=== PATIENT | female | born 1950 | race Caucasian/White ===

== ENCOUNTER 2024-03-26 05:54 | Day surgery (SDC) | payer OTHER, SELFPAY ==
[2024-03-26] VITALS (10 sets, daily range): BP systolic 116–152; BP diastolic 67–81; BMI 35.8
[2024-03-26] MEDS: LOW STRENGTH ASPIRIN 81 MG PO (07:15)
[2024-03-26] MEDS: NSS 249 ML IV (07:24)
--- NOTE | 2024-03-26 08:08 | ITS.CL.CATH ---
[facility] - Catheterization
Cardiac Catheterization
Procedure Report:
CARDIAC CATHETERIZATION REPORT
Date of Procedure: 03/26/2024
Referring: Sanjay Hewitt M.D., Ph.D.
INDICATION: Chest pain, suspicious for angina.
PROCEDURE:
1. Left heart catheterization.
2. Coronary angiography.
ACCESS:
6 [place] right radial artery.
CATHETERS:
1. 5 [place] JR4.
2. 5 [place] JL 3.5.
HEMODYNAMIC DATA
Weight (kg): 83.0
AO (s/d/x, mmHg): 126/72/94
LV (s/x mmHg): 126/15
LEFT VENTRICULOGRAPHY: Not performed.
CORONARY ANGIOGRAPHY
Dominance: Left.
Left Main: Large size, trifurcating vessel. There is no coronary artery disease.
LAD: Normal size vessel giving rise to 1 significant diagonal. There is mild narrowing in the ostium of the diagonal. Of note, flow is unrestricted yet comparatively slow in the distal vessels, particularly the LAD.
Ramus: Substantial, medium to large size vessel supplying much of the anterolateral wall. There is no coronary artery disease.
Circumflex: Large size, dominant vessel giving rise to 2 obtuse marginals before terminating as an LPDA. OM1 arises very high on the circumflex, immediately adjacent to the ramus intermedius. OM 2 is a larger vessel supplying the majority of the
inferolateral wall. There are luminal irregularities throughout the body of the circumflex and OM 2.
RCA: Larger size, nondominant vessel. There is a 40-50% lesion in the mid vessel.
INTERVENTION(S)
1. Administration of intracoronary nitroglycerin 150 mcg.
Narrative:
After initial angiography, it was clear that there was no significant epicardial coronary artery disease. We did observe that flow was comparatively slow in the distal LAD, concerning for endothelial dysfunction. We decided to administer
intracoronary vasodilators. Nitroglycerin 150 mcg was injected into the coronary then flushed through. Nitroglycerin effect was observed on the EKG. Repeat angiography showed modest improvement in the flow down the LAD.
Closure Device: Vascular band.
Radiation (mGy): 409.34
DAP (cm2.Gy): 34.6121
Fluoroscopy time (minutes): 3.4
Sedation time (minutes): 19
CONCLUSIONS
1. Left dominant circulation with mild luminal irregularities in the circumflex system, a 40-50% lesion in the mid nondominant RCA, mild narrowing of the ostium of D1 and comparatively slow flow in the distal vessels, particular the LAD, concerning
for endothelial dysfunction.
2. Top normal to mildly elevated filling pressures (LVEDP = 15 mmHg at 83.0 kg).
3. Radial artery spasm.
RECOMMENDATIONS:
1. Expectant management after cardiac catheterization via right radial approach.
2. Limited weight bearing on the right wrist for one week.
3. The patient would likely benefit from titration of her blood pressure medications to allow for less coronary artery spasm. We will discontinue hydrochlorothiazide and start calcium channel mariano (amlodipine versus nifedipine versus verapamil).
4. Increase rosuvastatin to 20 mg daily. Goal LDL <55.
5. Stable for outpatient follow-up.
Copy to: Sanjay Hewitt M.D., Ph.D., Parvez Stevens M.D.
Oliver Carrion, , FACC, FACP
== END 2024-03-26 11:00 | disposition home or self-care (01) ==
LOC: CATH 05:54
PROVIDERS: ATTENDING PHYSICIAN Internal Medicine Cardiovascular Disease; FAMILY PHYSICIAN Family Medicine; OTHER PHYSICIAN Internal Medicine
DX: R07.9 Chest pain, unspecified (principal); I10 Essential (primary) hypertension; E66.9 Obesity, unspecified; Z68.38 Body mass index [BMI] 38.0-38.9, adult; Z86.73 Personal history of transient ischemic attack (TIA), and cerebral infarction without residual deficits
CPT/HCPCS: 93458; C1894; Q9967

== ENCOUNTER → 2024-09-12 11:25 | Outpatient (REF) | payer OTHER, SELFPAY | LOC: DHCBC/DCA 11:25 | PROVIDERS: ATTENDING PHYSICIAN Internal Medicine; FAMILY PHYSICIAN Family Medicine | DX: I25.10 Atherosclerotic heart disease of native coronary artery without angina pectoris (principal) | CPT/HCPCS: 78452; 93017; A9500; J2785 ==

== ENCOUNTER 2025-04-10 07:59 | Emergency (ER) | payer OTHER, SELFPAY ==
[2025-04-10 08:02] VITALS: BP 163/82
[2025-04-10 08:18] VITALS: BMI 39.5
--- NOTE | 2025-04-10 08:35 | ED.MUSCINJ ---
HPI-Injury
General
Chief Complaint: Musculo-Skeletal Complaint
Source: patient
Exam Limitations: none
Time Seen by Provider: 04/10/25 08:12
History of Present Illness-Injury
Initial Injury comments:
75-year-old female [id number] presents complaining of left wrist pain starting yesterday. She slipped on a slippery incline and fell injuring her left wrist. She denies elbow pain. No other
Past History
Past History
ED Past Medical History: HTN
ED Past Surgical History: Orthopedic
Social History
Tobacco: Non-smoker
Alcohol: None
Drug: None
Personal:
Living: alone ( in care facility)
Employment: Employed
Family History
Family History: Other (Noncontributory)
Phy Exam
Physical Exam
Physical Exam:
General: Well-appearing female no acute distress
Musculoskeletal exam: Left elbow nontender. The left wrist is tender mainly over the radial aspect of the wrist. No deformities. Good range of motion all fingers left hand flexion extension of the wrist limited secondary to pain
Vascular: 2+ radial pulse left wrist
Neurologic: Good sensation left hand
Injury Course
Orders/Labs/Results
Orders:
Orders
04/10/25 08:04
Wrist, Left 3 Views CR [CR Wrist - Left Min 3 Views] Urgent
Comment:
Reason For Exam: fell landed on left wrist
MDM/Problems Addressed
Differential Diagnosis Includes:
Fall with left wrist pain. Consider sprain versus fracture. I have personally visualized x-rays of left wrist which demonstrate nondisplaced distal radius fracture that seems to be intra-articular. Will place in volar splint and recommend
orthopedic follow up.
*Pulse Oximetry
SaO2: 98
Oxygen Mode of Delivery: Room air
Patient hypoxic: no
*Critical Care Note
Total Time (30-74mins, 75-104mins- exclusive of procedures): Not Applicable
ED Attending Note
-
Portions of this chart may have been created with voice recognition software.� Occasional wrong word or��sound alike� substitutions may have occurred due to the inherent limitations of voice recognition software.
Discharge Plan
Departure
Patient Disposition: Home (Routine Discharge)
Date of Disposition: 04/10/25
Time of Disposition: 08:37
Patient with high blood pressure during this ER visit?: No
Discharge Problem:
Distal radial fracture
Instructions: Splint Care
Prescriptions:
No Action
aspirin 81 MG tablet,delayed release (DR/EC)
81 mg PO DAILY
cholecalciferol (vitamin D3) [Vitamin D3] 50 mcg (2,000 unit) Tablet
50 mcg PO DAILY
rosuvastatin 20 mg tablet
20 mg PO DAILY Qty: 90 3RF
valsartan 320 mg tablet
320 mg PO DAILY Qty: 90 3RF
verapamil 120 mg capsule,ext rel. pellets 24 hr
120 mg PO DAILY Qty: 90 3RF
Referrals:
Erasmo Lester MD [Active, Orthopedics]
Activity Restrictions/Additional Instructions:
Keep splint on and dry. Elevate for swelling. You may use Tylenol or ibuprofen for pain. Follow-up with orthopedics
Interventions
Interventions:
*Risk Screen - Suicide Last Done: 04/10/25 08:02
*General Assessment Last Done: 04/10/25 08:18
*Neglect/Abuse Screening Last Done: 04/10/25 08:02
*ED- Fall Risk Assessment Last Done: 04/10/25 08:18
*ED COVID-19 Vaccine History Last Done: 04/10/25 08:18
ED-Musculoskeletal Assessment Last Done: 04/10/25 08:18
Discharge Date and Time
Print Language: LATVIAN
== END 2025-04-10 09:12 | disposition home or self-care (01) ==
LOC: EMR 07:59
PROVIDERS: EMERGENCY PHYSICIAN Emergency Medicine; FAMILY PHYSICIAN Family Medicine
DX: S52.502A Unspecified fracture of the lower end of left radius, initial encounter for closed fracture (principal); W01.0XXA Fall on same level from slipping, tripping and stumbling without subsequent striking against object, initial encounter; I10 Essential (primary) hypertension
CPT/HCPCS: 29125; 99283; 73110

== ENCOUNTER 2025-07-09 14:18 | Emergency (ER) | payer OTHER, SELFPAY ==
[2025-07-09 14:26] VITALS: BP 134/72
[2025-07-09 14:48] LABS: Hematocrit 38.3 % (37.0-47.0); Hemoglobin 13.0 g/dL (12.0-16.0); Mean Corp Hgb Conc. 33.9 g/dL (33.0-37.0); Mean Corpuscular Volume 87.4 fL (81.0-99.0); Nucleated Red Blood Cells % 0 %; Platelet Count 202 10^3/uL (130-400); Red Cell Dist. Width 14.1 % (11.5-14.5)
--- NOTE | 2025-07-09 14:55 | ED.GENMED ---
History of Present Illness
General
Chief Complaint: Nose Bleed
Source: patient
Exam Limitations: none
Time Seen by Provider: 07/09/25 14:42
History of Present Illness
History of Present Illness:
75-year-old female not anticoagulated presents complaining of intermittent nosebleeds over the past week. Today it lasted about 2-1/2 hours. She concerned about the amount of blood she lost. She is not anticoagulated. She denies lightheadedness
shortness of breath or chest pain. She put a piece of cotton a prior to arrival and has not been bleeding since then. No other complaints
Past History
Past History
ED Past Medical History: HTN
ED Past Surgical History: Orthopedic
Social History
Tobacco: Non-smoker
Alcohol: None
Drug: None
Personal:
Living: alone ( in care facility)
Employment: Employed
Family History
Family History: Other (Noncontributory)
Phy Exam
Physical Exam
Physical Exam:
General: Well-appearing female no acute respiratory distress
HEENT normal cephalic atraumatic left nasal cavity with evidence of anterior bleeding recently. There is no current bleeding. The right nasal cavity is patent. Posterior pharynx is without erythema or blood.
Extremities: No cyanosis
Course
Orders/Labs/Results
Orders:
Orders
07/09/25 14:40
Complete Blood Count/With Diff Urgent
Prothrombin Time Urgent
07/09/25 14:40
Vital Signs
Initial and Last Documented VS:
Initial Vital Signs
Temp Pulse Resp BP Pulse Ox
98.2 F 68 18 134/72 96
07/09/25 14:26 07/09/25 14:26 07/09/25 14:26 07/09/25 14:26 07/09/25 14:26
Last Documented Vital Signs
Temp Pulse Resp BP Pulse Ox
98.2 F 68 18 134/72 96
07/09/25 14:26 07/09/25 14:26 07/09/25 14:26 07/09/25 14:26 07/09/25 14:56
MDM/Problems Addressed
Differential Diagnosis Includes:
Left-sided epistaxis anterior nature not currently bleeding. Piece of cotton soaked with lidocaine and epinephrine was placed into the nose. Will attempt to cauterize once anesthesia has been provided
*Pulse Oximetry
SaO2: 96
Oxygen Mode of Delivery: Room air
Patient hypoxic: no
*Critical Care Note
Total Time (30-74mins, 75-104mins- exclusive of procedures): Not Applicable
Update Note
Update Note:
Patient was cauterized after piece of cotton and lidocaine with epinephrine was placed into her nose. This was removed silver nitrate was used to cauterize area of bleeding. Patient was observed for the period time she was able to ambulate and
there was no further bleeding. Recommend follow-up with ENT stable for discharge
ED Attending Note
-
Portions of this chart may have been created with voice recognition software.� Occasional wrong word or��sound alike� substitutions may have occurred due to the inherent limitations of voice recognition software.
Discharge Plan
Departure
Patient Disposition: Home (Routine Discharge)
Date of Disposition: 07/09/25
Time of Disposition: 16:45
Patient with high blood pressure during this ER visit?: No
Discharge Problem:
Acute anterior epistaxis
Instructions: Nosebleeds (DC)
Prescriptions:
No Action
aspirin 81 MG tablet,delayed release (DR/EC)
81 mg PO DAILY
cholecalciferol (vitamin D3) [Vitamin D3] 50 mcg (2,000 unit) Tablet
50 mcg PO DAILY
rosuvastatin 20 mg tablet
20 mg PO DAILY Qty: 90 3RF
valsartan 320 mg tablet
320 mg PO DAILY Qty: 90 3RF
verapamil 120 mg capsule,ext rel. pellets 24 hr
120 mg PO DAILY Qty: 90 3RF
Referrals:
Parvez Stevens MD [Family Provider, Family Practice]
Aneesh Duran MD [Active, Otology]
Activity Restrictions/Additional Instructions:
Keep nasal mucosa moist with Vaseline. Return if worse otherwise follow-up with ENT
Interventions
Interventions:
*Risk Screen - Suicide Last Done: 07/09/25 14:26
*General Assessment Last Done: 07/09/25 14:26
*Neglect/Abuse Screening Last Done: 07/09/25 14:26
*ED COVID-19 Vaccine History Last Done: 07/09/25 14:26
*ED Influenza Vaccine History Last Done: 07/09/25 14:26
ED-EENT Assessment Last Done: 07/09/25 14:46
Discharge Date and Time
Print Language: IRAQI
[2025-07-09 15:00] LABS: INR 1.04; PT 13.9 Sec (11.4-14.6)
== END 2025-07-09 17:36 | disposition home or self-care (01) ==
LOC: EMR 14:18
PROVIDERS: EMERGENCY PHYSICIAN Emergency Medicine; FAMILY PHYSICIAN Family Medicine
DX: R04.0 Epistaxis (principal); I10 Essential (primary) hypertension
CPT/HCPCS: 99283; 30901; 85025; 85610

== ENCOUNTER → 2025-09-11 11:46 | Outpatient (REF) | payer OTHER, SELFPAY | LOC: HWRCS 11:46 | PROVIDERS: ATTENDING PHYSICIAN Internal Medicine; FAMILY PHYSICIAN Family Medicine | DX: I10 Essential (primary) hypertension (principal); I25.10 Atherosclerotic heart disease of native coronary artery without angina pectoris; R06.09 Other forms of dyspnea | CPT/HCPCS: 78452; 93017; A9500; J2785 ==